=== PATIENT | male | born 1940 | race Caucasian/White ===

== ENCOUNTER 2018-01-21 11:04 | Observation (INO) | payer OTHER ==
[~2018-01-21] VITALS: Ht 167.6 cm; Wt 76.0 kg
[~2018-01-21 11:04] MED LIST: AMLODIPINE-ATO1 EAC7 PO; ASPIR 8181 MG PO; VITAMIN D1000 UNI1 PO; ZETIA10 MG PO
[2018-01-21 11:20] VITALS: BP 148/87
[2018-01-21] MEDS ORDERED: FOLBIC RF TABL1 EACH PO (11:24)
[2018-01-21 11:53] LABS: ABSOLUTE BASOPHILS 0.1 thou/uL (0.0-0.2); ABSOLUTE EOSINOPHILS 0.2 thou/uL (0.0-0.7); ABSOLUTE LYMPHOCYTES 1.1 thou/uL (0.8-5.3); ABSOLUTE MONOCYTES 0.6 thou/uL (0.0-1.2); ABSOLUTE NEUTROPHILS 3.6 thou/uL (1.6-8.1); BASOPHILS 1.3 %; EOSINOPHILS 3.4 %; HEMATOCRIT 43.9 % (42.0-52.0); HEMOGLOBIN 14.8 gm/dL (14.0-18.0); LYMPHOCYTES 20.3 %; MCH 32.6 pg (26.0-34.0); MCHC 33.7 g/dL (28.0-37.0); MCV 96.7 fL (80.0-100.0); MONOCYTES 10.4 %; MPV 7.6 fl. (7.2-11.1); NUCLEATED RBCS 0 /100WBC; PLATELET COUNT* 209 thou/uL (150-400); POLYS 64.6 %; RBC 4.54 mil/uL (4.50-6.00); RDW-CV 14.1 % (10.5-14.5); WBC 5.5 thou/uL (4.0-11.0)
[2018-01-21 12:01] LABS: ANION GAP 8 mmol/L (7-16); BUN 18 mg/dL (7-18); CALCIUM 8.6 mg/dL (8.5-10.1); CHLORIDE 107 mmol/L (98-107); CO2 29 mmol/L (21-32); CREATININE 1.4 mg/dL (0.6-1.3); GLUCOSE 138 mg/dL (70-99); POTASSIUM 3.8 mmol/L (3.5-5.1); SODIUM 144 mmol/L (136-145)
[2018-01-21 12:08] LABS: ALBUMIN 3.7 g/dL (3.4-5.0); ALKALINE PHOSPHATASE 83 U/L (46-116); SGOT 24 U/L (15-37); SGPT 27 U/L (30-65); TOTAL BILIRUBIN 1.1 mg/dL (<0.1-1.0); TROPONIN-I LEVEL <0.06 ng/mL (<0.06)
[2018-01-21 12:24] LABS: URINE BILIRUBIN NEGATIVE (Negative); URINE BLOOD TRACE (Negative); URINE CLARITY CLEAR; URINE COLOR YELLOW; URINE GLUCOSE-RANDOM NEGATIVE (Negative); URINE KETONES NEGATIVE (Negative); URINE LEUKOCYTES-REFLEX NEGATIVE (Negative); URINE NITRITE-REFLEX NEGATIVE (Negative); URINE PROTEIN NEGATIVE (Negative); URINE SPECIFIC GRAVITY >= 1.030 (1.005-1.030); URINE UROBILINOGEN 0.2 E.U./dl (0.2-1.0)
[2018-01-21 14:22] VITALS: BP 136/78
--- NOTE | 2018-01-21 18:21 | NUR ---
RECEIVED REPORT FROM ROGER SMART IN ER. PT TRANSFERED TO TELE FLOOR AT 1430, ASSUMED CARE. VSS. O2 SAT 96% ON ROOM AIR. PT A&O X4. SAP FUNCTIONAL ANALYST IN PLACE TRACING SB/SR. ADMISSION ASSESSMENT, HISTORY, AND EDUCATION COMPLETED CHARTED. PT ORIENTED TO ROOM, BED AND CALL LIGHT. PT COMMUNICATES UNDERSTANDING. IV PATENT AND INFUSING IVF. PT DENEIS CHEST PAIN, OR ANY PAIN OR DISCOMFORT. DR BAEZ UPDATED ABOUT PT - PT ALLOWED TO EAT DINNER, EATING AND DRINKING WITHOUT ISSUE. PT UP AD MARIO TO THE BATHROOM, VOIDING WITHOUT ISSUE. FAMILY VISITED FOR A SHORT TIME THIS AFTERNOON. PT CURRENTLY RESTING IN BED. CALL LIGHT IS WITHIN REACH, LOW FALL RISK PRECAUTIONS ARE IN PLACE. WILL CONTINUE TO MONITOR FOR DURATION OF SHIFT. HOURLY ROUNDING PERFORMED.
[2018-01-21 20:00] VITALS: BP 123/57
[2018-01-22] VITALS: BP 93/50
--- NOTE | 2018-01-22 00:44 | NUR ---
PT ALERT ORIENTED. UP AD MARIO IN ROOM. TELEMETRY SHOWS SB. MN TROPONIN <0.06. NS AT 100MLS/HR. WILL CONTINUE TO MONITOR.
[2018-01-22 04:00] VITALS: BP 110/63
[2018-01-22 08:00] VITALS: BP 114/65
--- NOTE | 2018-01-22 10:08 | NUR ---
RECEIVED REPORT. ASSUMED CARE OF PT AT 0730. PT A&O X4. VSS. O2 SAT 96% ON RA. DESSERT CUP MACHINE FEEDER IN PLACE TRACING SB. HR 40'S - PT ASYMPTOMATIC. AM ASSESSMENT AND VITALS COMPLETED CHARTED. IV PATENT AND INFUSING. PT EATING AND DRINKING WITHOUT ISSUE. PT UP AD MARIO IN ROOM, AMBULATING WITHOUT DIFFICULTY. PT ANXIOUS TO GO HOME. WORRIED ABOUT HIS DOGGIES AT HOME. DENIES CHEST PAIN TODAY. DENIES ANY PAIN OR DISCOMFORT. PT VOIDING WITHOUT ISSUE. BM THIS AM. PT INFORMED OF PLAN OF CARE. CALL LIGHT IS WITHIN REACH. LOW FALL RISK PRECAUTIONS ARE IN PLACE. WILL CONTINUE TO MONITOR.
[2018-01-22 12:36] VITALS: BP 121/66
--- NOTE | 2018-01-22 13:05 | EKG ---
[place] [address] ELECTROCARDIOGRAM REPORT Name: ANA MARIA MENDOZA Room: [address] ADM IN M.R.#: [id number] Admission: 01/21/18 Attend Phys: Glynn Amador, Discharge: Date of : 42 Report #: [id number] THIS REPORT FOR: //name// [facility] ED Test Date: 2018-01-21 Test Time: 11:29:56 Pat Name: ANA MARIA MENDOZA Department: Room: [facility] Gender: M [place] Department Worker: Momo SOTELO : 1940 Requested By: Parul Solis Order Number: [id number] MD: Lucien Pittman Measurements Intervals [place] Rate: 48 P: 56 MO: 148 QRS: 35 QRSD: 100 T: 31 QT: 445 QTc: 398 Interpretive Statements Sinus bradycardia No previous ECG available for comparison Electronically Signed On 01-22-2018 13:05:04 CDT by Lucien Pittman [email or web address] <ELECTRONICALLY SIGNED> By: Mickey Pittman MD, [facility] 01/22/18 1305 [id number] [id number] Mickey Pittman MD, FACC /EPI
--- NOTE | 2018-01-22 13:17 | NUR ---
PT SEEN BY DR BAEZ; STRESS TEST ORDERED FOR TUESDAY. PT WOULD PREFER TO COMPLETE THE STRESS TEST AN OUTPATIENT WITH HIS PCP. PT IS WORRIED ABOUT HIS DOGS AT HOME AND DOES NOT HAVE ANY FAMILY WHO CAN EASILY TAKE CARE OF THE DOGS WHILE HE IS AT THE HOSPITAL. PT DECIDING TO LEAVE AMA. PT AWARE OF RISKS ASSOCIATED WITH LEAVING AMA. PT SIGNED AMA PAPERWORKD. DR CHAN AND DR BAEZ NOTED. PT LEFT UNIT WITH SISTER IN LAW.
--- NOTE | 2018-01-24 16:14 | CON ---
[address] [address] CONSULTATION Name: ANA MARIA MENDOZA Room: [address] Nai Mcintosh#: [id number] Admission: 01/21/18 Attend Phys: Glynn Amador, Discharge: 01/22/18 Date of : 42 Report #: [id number] THIS REPORT FOR: //name// CC: Issac Amador HISTORY OF PRESENT ILLNESS: I was asked by Dr. Aamdor to see this 77-year-old white male in cardiology consultation for evaluation and treatment of chest pain. This man has a history of coronary artery disease and previous coronary stents in 1999. He also had a Rotablator procedure. He says this pain that brought him to the hospital is not like his previous chest pain, which was like a large piece of roast beef getting stuck in his throat. This pain was a vague chest discomfort in the left chest and a small area that began really 6 weeks ago or so. The pain initially was brief and now, it gradually increased to where on Tuesday, it lasted 24 hours. The pain was nonexertional. It was only 1 on a scale of 10. There was no radiation of the pain and no associated symptoms, but it did last 24 hours. He was able to sleep through the night with it, however. He denies issues with classic anginal chest pain or dyspnea on exertion, shortness of breath at rest, orthopnea, PND or edema. He has not had syncope or near syncope. Coronary risk factors include a history of hypercholesterolemia, he is on treatment. He also has history of high blood pressure, he is on treatment. He has not had diabetes. He does not smoke. His mother did have bypass graft surgery. He has not had renal failure. He has not had any TIAs or CVAs. He has not had claudication. He did have a hernia repair. HOME MEDICATIONS: Amlodipine/atorvastatin 10/80 one daily, aspirin 81 mg daily, B12, folic acid, calcium, B6 supplement 1 daily, vitamin D 1000 units daily, and Zetia 10 mg daily. ALLERGIES: He has no known allergies. REVIEW OF SYSTEMS: Positive for history of a heart murmur, arthritis, wearing glasses and decreased hearing. Otherwise, his review of systems is negative for some 40 different complaints in 14 different system categories including central nervous system, general, respiratory, cardiovascular, endocrine, gastrointestinal, genitourinary, hematologic, lymphatic, allergic, immunologic, psychiatric, musculoskeletal, skin, eyes, ears, nose, mouth, and throat. Please see review of system form for details and negatives in review of systems. SOCIAL HISTORY: He is . Does not smoke, drink or use illegal drugs. He is retired from [employer]. FAMILY HISTORY: Includes his mother having coronary artery disease and previous bypass graft surgery. She had hyperlipidemia. PHYSICAL EXAMINATION: [place] [address] CONSULTATION Name: ANA MARIA MENDOZA Room: [address] Nai Mcintosh#: [id number] Admission: 01/21/18 Attend Phys: Glynn Amador, Discharge: 01/22/18 Date of : 42 Report #: [id number] GENERAL: He presents as a well-developed, well-nourished, white male in no acute distress. VITAL SIGNS: His pulse was 43 and regular, blood pressure is 110/63, respirations are 15 and regular, temperature is 98.6. HEENT: His head was atraumatic. Eyes clear. NECK: Supple. There is no jugular venous distention or hepatojugular reflux. Thyroid is not enlarged. There is no adenopathy. SKIN: Warm and dry. Mucous membranes are moist. LUNGS: Clear to auscultation and percussion. HEART: Revealed normal first and second heart sound. There is soft S4. There is no S3. There are no murmurs, rubs, thrills, heaves or gallops. PMI is nondisplaced. ABDOMEN: Soft, flat, nontender, no palpable masses, no organomegaly. EXTREMITIES: Revealed no cyanosis, clubbing or edema. NEUROLOGIC: The patient mentated normally, talked normally, moved all extremities normally. LABORATORY DATA: His EKG reveals sinus bradycardia, heart rate is 48, otherwise it is normal EKG. Chest x-ray is normal. Troponins have been normal. I believe there are 4 of them that are normal. An NT-proBNP was not obtained. IMPRESSION: 1. Chest pain. 2. Coronary artery disease. 3. Previous coronary stents. 4. Hypercholesterolemia. 5. Essential hypertension. 6. Family history of coronary artery disease. RECOMMENDATION: He should have an exercise Cardiolite stress test. If his heart rate cannot be gotten up, then he will have to be switched to Lexiscan. Additionally, he needs an echo. Thank you very much for asking me to see the patient. If there are any questions, please feel free to contact me. <ELECTRONICALLY SIGNED> By: Mickey Pittman MD, [facility] 01/24/18 1614 [id number]. Lucien Pittman MD, FACC /nt
== END 2018-01-22 13:23 | disposition left against medical advice (07) ==
LOC: M.ERS 11:04 → M.2W 13:43 → M.TBA-ER 13:43 → M.2W 14:29
PROVIDERS: Physician Assistant; ADMIT Family Medicine
DX: R07.89 Other chest pain (principal); I25.10 Atherosclerotic heart disease of native coronary artery without angina pectoris; I10 Essential (primary) hypertension; E78.00 Pure hypercholesterolemia, unspecified; Z82.49 Family history of ischemic heart disease and other diseases of the circulatory system; Z91.19 Patient's noncompliance with other medical treatment and regimen; Z95.5 Presence of coronary angioplasty implant and graft